=== PATIENT | male | born 1950 | race Caucasian/White ===

== ENCOUNTER → 2016-05-06 | Outpatient (CLI) | payer MEDICARE, BC | LOC: LAB 11:46 | DX: I25.10 Atherosclerotic heart disease of native coronary artery without angina pectoris (principal); E11.9 Type 2 diabetes mellitus without complications; K63.5 Polyp of colon; Z12.11 Encounter for screening for malignant neoplasm of colon; K90.89 Other intestinal malabsorption ==

== ENCOUNTER → 2016-11-20 | Outpatient (CLI) | payer MEDICARE, BC | LOC: LAB 09:40 | DX: E78.2 Mixed hyperlipidemia (principal) ==

== ENCOUNTER → 2017-04-14 | Outpatient (CLI) | payer MEDICARE, BC ==
[2017-04-14 10:22] LABS: ALBUMIN 4.4 g/dL (3.5-5.0); DIRECT BILIRUBIN 0.5 mg/dL (0.0-0.4); TOTAL BILIRUBIN 0.7 mg/dL (0.2-1.3); TOTAL PROTEIN 7.8 g/dL (6.3-8.2)
== END ==
LOC: LAB 09:48
PROVIDERS: Internal Medicine
DX: E78.2 Mixed hyperlipidemia (principal)

== ENCOUNTER → 2018-05-20 | Outpatient (CLI) | payer MEDICARE, BC | LOC: RAD 12:05 | DX: M19.011 Primary osteoarthritis, right shoulder (principal); M11.011 Hydroxyapatite deposition disease, right shoulder; M79.9 Soft tissue disorder, unspecified ==